=== PATIENT | female | born 1985 | race Caucasian/White ===

== ENCOUNTER 2018-10-08 12:20 | Emergency (ER) | payer MEDICAID ==
[~2018-10-08] VITALS: Ht 170.2 cm; Wt 49.9 kg
[2018-10-08 12:22] VITALS: BP 111/74
--- NOTE | 2018-10-08 12:58 | NUR ---
PT SEEN BY CASTILLO. PT LEFT ED BEFORE FOOT CARE.
== END 2018-10-08 13:01 | disposition home or self-care (01) ==
LOC: ER 12:20
DX: S90.822A Blister (nonthermal), left foot, initial encounter (principal); S90.821A Blister (nonthermal), right foot, initial encounter; J45.909 Unspecified asthma, uncomplicated; Z88.0 Allergy status to penicillin; X58.XXXA Exposure to other specified factors, initial encounter; Y93.01 Activity, walking, marching and hiking; Y92.89 Other specified places as the place of occurrence of the external cause; Y99.8 Other external cause status